=== PATIENT | female | born 1955 | race Caucasian/White ===

== ENCOUNTER 2016-10-12 19:47 | Emergency (ER) | payer OTHER ==
[~2016-10-12 19:47] MED LIST: ALBUTEROL HFA6.7 GM IH; ALBUTEROL HFA6.7 GM INH; ALPRAZOLAM1 MG PO; AMITRIPTYLINE H25 MG PO; AMLACTIN1 EACH TOP; AMMONIUM LACTA225 GM TOP; AMMONIUM LACTATE1 ML TOP; ASPIR 8181 MG PO; ASPIRIN EC81 MG PO; AUGMENTIN 875-1 EACH PO; BACTROBAN15 GM TOP; CARDIZEM LA420 MG PO; DALIRESP500 MCG PO; DIGOXIN125 MCG PO; DILTIAZEM 24HR120 M1 PO; DILTIAZEM ER420 MG PO; FEOSOL325 MG PO; FERROUS SULFAT325 MG PO; FIORICET 50-301 EACH PO; FIORICET/BUTALBI1 EA PO; FLONASE ALLER15.8 ML; FLUTICASONE PRO16 GM NS; FUROSEMIDE40 MG PO; GABAPENTIN300 MG PO; GLUCOTROL10 MG PO; HUMALOG100 UNIT/1 SQ; IPRAT-ALBUT 0.5-3 ML NEB; K-DUR20 MEQ PO; KLOR-CON M2020 MEQ PO; LACTINEX CHEWA1 EACH PO; LANOXIN125 MCG PO; LANOXIN250 MCG PO; LANTUS100 UNIT/1 SQ; LASIX40 MG PO; LEVALBUTEROL NEB; LEVAQUIN750 MG PO; LEVOFLOXACIN750 MG PO; LEVOTHYROXINE150 MCG PO; LEXAPRO20 MG PO; LISINOPRIL5 MG PO; METOPROLOL TART25 MG PO; MONTELUKAST SOD10 MG PO; MULTAQ400 MG PO; MYSOLINE50 MG PO; NEURONTIN300 MG PO; NEURONTIN600 MG PO; NITROGLYCERIN0.4 MG SL; NITROQUICK0.4 MG SL; NITROSTAT0.4 MG SL; OMEPRAZOLE20 MG PO; OMEPRAZOLE40 MG PO; ONDANSETRON HCL4 MG PO; PERCOCET 10-321 EACH PO; PERCOCET 10/3251 TAB PO; PHENERGAN25 M1 PO; POLYETHYLENE GL17 GM PO; POTASSIUM CHLO20 ME1 PO; PREDNISONE10 MG PO; PREDNISONE20 MG PO; PRILOSEC20 M1 PO; PRILOSEC40 MG PO; PRIMIDONE50 MG PO; PRINIVIL10 MG PO; PRINIVIL5 MG PO; PROAIR HFA8.5 GM IH; REGLAN10 MG PO; REQUIP1 MG PO; REQUIP2 MG PO; ROPINIROLE HCL2 MG PO; SALINE NASAL M126 ML NS; SALINE NOSE SPR45 ML NS; SERTRALINE HCL50 MG PO; SINGULAIR10 MG PO; SMOOTHLAX17 GM PO; SPIRIVA18 MCG IH; SYMBICORT 16010.2 GM IH; SYNTHROID150 MCG PO; TESSALON PERLE100 MG PO; THEOPHYLLINE A300 MG PO; THEOPHYLLINE600 MG PO; TUDORZA PRESS400 MCG IH; TUSSIONEX PENN115 ML PO; TYLENOL325 MG PO; XANAX1 MG PO; XARELTO15 MG PO; ZESTRIL10 MG PO; ZOFRAN4 MG PO; ZOLOFT100 MG PO; ZOLOFT50 MG PO; [UNRECOGNIZED DRUG - OTHER] NEB
== END 2016-10-12 23:10 | disposition home or self-care (01) ==
LOC: ER 19:47
DX: R10.32 Left lower quadrant pain (principal); J44.1 Chronic obstructive pulmonary disease with (acute) exacerbation; R11.0 Nausea; E10.9 Type 1 diabetes mellitus without complications; F32.9 Major depressive disorder, single episode, unspecified; F41.9 Anxiety disorder, unspecified; I48.91 Unspecified atrial fibrillation; K21.9 Gastro-esophageal reflux disease without esophagitis; I25.2 Old myocardial infarction; I50.9 Heart failure, unspecified; E66.01 Morbid (severe) obesity due to excess calories; E78.5 Hyperlipidemia, unspecified; E03.9 Hypothyroidism, unspecified; I25.10 Atherosclerotic heart disease of native coronary artery without angina pectoris; Z98.51 Tubal ligation status; Z87.891 Personal history of nicotine dependence; Z79.899 Other long term (current) drug therapy; Z88.1 Allergy status to other antibiotic agents; Z88.6 Allergy status to analgesic agent; Z88.8 Allergy status to other drugs, medicaments and biological substances
CPT/HCPCS: 36415; 96374; 96375; 96376

== ENCOUNTER 2016-11-05 22:12 | Inpatient (IN) | payer OTHER ==
[~2016-11-05] VITALS: Ht 160 cm; Wt 80.4 kg
[2016-11-09] MEDS ORDERED: XANAX1 MG PO (13:15)
[2016-11-09] MEDS ORDERED: TESSALON PERLE100 MG PO (13:16)
[2016-11-09] MEDS ORDERED: DALIRESP500 MCG PO (13:16)
[2016-11-09] MEDS ORDERED: LEXAPRO20 MG PO (13:17)
[2016-11-09] MEDS ORDERED: FERROUS SULFAT325 MG PO (13:19)
[2016-11-09] MEDS ORDERED: LASIX40 MG PO (13:21)
[2016-11-09] MEDS ORDERED: NEURONTIN300 MG PO (13:23)
[2016-11-09] MEDS ORDERED: POLYETHYLENE GL17 GM PO (13:23)
[2016-11-09] MEDS ORDERED: HUMALOG100 UNIT/1 SQ (13:28)
[2016-11-09] MEDS ORDERED: LANTUS100 UNIT/1 SQ (13:28)
[2016-11-09] MEDS ORDERED: SYNTHROID150 MCG PO (13:29)
[2016-11-09] MEDS ORDERED: ZESTRIL10 MG PO (13:36)
[2016-11-09] MEDS ORDERED: METOCLOPRAMIDE10 MG PO (13:36)
[2016-11-09] MEDS ORDERED: SINGULAIR10 MG PO (13:37)
[2016-11-09] MEDS ORDERED: BACTROBAN NASAL1 GM TOP (13:38)
[2016-11-09] MEDS ORDERED: NITROSTAT0.4 MG SL (13:40)
[2016-11-09] MEDS ORDERED: SALINE NOSE SPR45 ML NS (13:41)
[2016-11-09] MEDS ORDERED: OMEPRAZOLE40 MG PO (13:42)
[2016-11-09] MEDS ORDERED: ZOFRAN4 MG PO (13:43)
[2016-11-09] MEDS ORDERED: PERCOCET 10-321 EACH PO (13:44)
[2016-11-09] MEDS ORDERED: K-DUR20 MEQ PO (13:46)
[2016-11-09] MEDS ORDERED: REQUIP2 MG PO (13:47)
[2016-11-09] MEDS ORDERED: PHENERGAN25 M1 PO (13:47)
[2016-11-09] MEDS ORDERED: TUDORZA PRESS400 MCG IH (13:48)
[2016-11-09] MEDS ORDERED: THEOCHRON300 MG PO (13:48)
[2016-11-09] MEDS ORDERED: XARELTO15 MG PO (13:49)
[2016-11-09] MEDS ORDERED: CARDIZEM LA420 MG PO (13:50)
[2016-11-09] MEDS ORDERED: SPIRIVA18 MCG IH (13:51)
[2016-11-09] MEDS ORDERED: LANOXIN250 MCG PO (13:51)
[2016-11-09] MEDS ORDERED: PRIMIDONE50 MG PO (13:52)
[2016-11-09] MEDS ORDERED: XOPENEX1.25 MG/3 NEB (13:53)
[2016-11-09] MEDS ORDERED: PREDNISONE10 MG PO (13:54)
[2016-11-09] MEDS ORDERED: LEVAQUIN500 MG PO (13:55)
== END 2016-11-09 18:37 | disposition home or self-care (01) | DRG 189 ==
LOC: ER 22:12 → MED 11-06 01:56
PROVIDERS: ADMIT Internal Medicine
DX: J96.22 Acute and chronic respiratory failure with hypercapnia (principal); J44.0 Chronic obstructive pulmonary disease with (acute) lower respiratory infection; J44.1 Chronic obstructive pulmonary disease with (acute) exacerbation; K94.09 Other complications of colostomy; J96.21 Acute and chronic respiratory failure with hypoxia; Z99.81 Dependence on supplemental oxygen; J20.9 Acute bronchitis, unspecified; E11.43 Type 2 diabetes mellitus with diabetic autonomic (poly)neuropathy; E11.65 Type 2 diabetes mellitus with hyperglycemia; K31.84 Gastroparesis; T38.0X5A Adverse effect of glucocorticoids and synthetic analogues, initial encounter; G47.33 Obstructive sleep apnea (adult) (pediatric); I48.0 Paroxysmal atrial fibrillation; G25.0 Essential tremor; K46.9 Unspecified abdominal hernia without obstruction or gangrene; I10 Essential (primary) hypertension; E03.9 Hypothyroidism, unspecified; D63.8 Anemia in other chronic diseases classified elsewhere; K21.9 Gastro-esophageal reflux disease without esophagitis; F41.9 Anxiety disorder, unspecified; F32.9 Major depressive disorder, single episode, unspecified; G89.29 Other chronic pain; M54.5 Low back pain; M81.0 Age-related osteoporosis without current pathological fracture; G25.81 Restless legs syndrome; I25.10 Atherosclerotic heart disease of native coronary artery without angina pectoris; Z79.01 Long term (current) use of anticoagulants; Z79.4 Long term (current) use of insulin; Z79.899 Other long term (current) drug therapy; Z88.6 Allergy status to analgesic agent; Z88.1 Allergy status to other antibiotic agents; Z88.2 Allergy status to sulfonamides; Z88.8 Allergy status to other drugs, medicaments and biological substances; Z98.51 Tubal ligation status; Z87.891 Personal history of nicotine dependence; Z83.3 Family history of diabetes mellitus; Z82.49 Family history of ischemic heart disease and other diseases of the circulatory system; R10.9 Unspecified abdominal pain
CPT/HCPCS: 36415; 74020; 94664; 96374; 96375; J1940; J2920

== ENCOUNTER 2016-12-28 00:58 | Emergency (ER) | payer OTHER ==
[~2016-12-28 00:58] MED LIST changes: +BACTROBAN NASAL1 GM TOP; +LEVAQUIN500 MG PO; +METOCLOPRAMIDE10 MG PO; +THEOCHRON300 MG PO; +XOPENEX1.25 MG/3 NEB
== END 2016-12-28 02:14 | disposition home or self-care (01) ==
LOC: ER 00:58
DX: N39.0 Urinary tract infection, site not specified (principal); F32.9 Major depressive disorder, single episode, unspecified; F41.9 Anxiety disorder, unspecified; I48.91 Unspecified atrial fibrillation; K21.9 Gastro-esophageal reflux disease without esophagitis; I25.10 Atherosclerotic heart disease of native coronary artery without angina pectoris; I25.2 Old myocardial infarction; E66.01 Morbid (severe) obesity due to excess calories; E11.9 Type 2 diabetes mellitus without complications; Z98.51 Tubal ligation status; Z68.29 Body mass index [BMI] 29.0-29.9, adult; Z79.4 Long term (current) use of insulin; Z79.899 Other long term (current) drug therapy

== ENCOUNTER 2016-12-29 22:34 | Emergency (ER) | payer OTHER | END 2016-12-30 02:45 | disposition home or self-care (01) | LOC: ER 22:34 | DX: N39.0 Urinary tract infection, site not specified (principal); K21.9 Gastro-esophageal reflux disease without esophagitis; E11.9 Type 2 diabetes mellitus without complications; E78.5 Hyperlipidemia, unspecified; J44.9 Chronic obstructive pulmonary disease, unspecified; F32.9 Major depressive disorder, single episode, unspecified; F41.9 Anxiety disorder, unspecified; I25.2 Old myocardial infarction; I48.91 Unspecified atrial fibrillation; E66.01 Morbid (severe) obesity due to excess calories; Z98.51 Tubal ligation status; Z87.891 Personal history of nicotine dependence; Z99.81 Dependence on supplemental oxygen; Z79.4 Long term (current) use of insulin; Z79.899 Other long term (current) drug therapy; Z88.1 Allergy status to other antibiotic agents; Z88.6 Allergy status to analgesic agent; Z88.8 Allergy status to other drugs, medicaments and biological substances | CPT/HCPCS: 36415; 96361; 96365; 96375; 96376; J0696 ==

== ENCOUNTER 2017-01-13 11:05 | Emergency (ER) | payer OTHER | END 2017-01-13 14:07 | disposition home or self-care (01) | LOC: ER 11:05 | DX: N30.90 Cystitis, unspecified without hematuria (principal); E78.5 Hyperlipidemia, unspecified; J44.9 Chronic obstructive pulmonary disease, unspecified; K21.9 Gastro-esophageal reflux disease without esophagitis; I48.91 Unspecified atrial fibrillation; I25.2 Old myocardial infarction; E11.9 Type 2 diabetes mellitus without complications; F32.9 Major depressive disorder, single episode, unspecified; F41.9 Anxiety disorder, unspecified; E03.9 Hypothyroidism, unspecified; Z98.51 Tubal ligation status; Z87.891 Personal history of nicotine dependence; Z79.4 Long term (current) use of insulin; Z79.899 Other long term (current) drug therapy; Z88.1 Allergy status to other antibiotic agents; Z88.6 Allergy status to analgesic agent; Z88.8 Allergy status to other drugs, medicaments and biological substances | CPT/HCPCS: 36415; 96361; 96365; 96375; J1335 ==

== ENCOUNTER 2017-03-29 14:01 | Inpatient (IN) | payer OTHER ==
[~2017-03-29] VITALS: Ht 160 cm; Wt 79.0 kg
--- NOTE | 2017-03-30 18:50 | NUR ---
1415: NOTIFED OF PATIENT'S BP BEING 80/40, PAC NOTIFED, 250 ML NS BOLUS ORDERED, BP RECHECK POST BOLUS, 82/46 MANUAL BP. NEW ORDER RECIEVED TO REPEAT BOLUS. NEW ORDERS RECIEVED SEE CHART 1615: [facility]-P[facility] NOTIFED OF STAT LAB RESULT OF POTASSIUM OF 2.8, NEW ORDERS RECIEVED;SEE CHART 1700: PT'S BP AT 92/56, PT TAKEN TO MRI. PT STABLE AT TIME OF TRANSPORT. 1825: PT'S BP 110/61, PT STABLE AT THIS TIME, RESTING IN BED WITH EYES CLOSED, FAMILY AT BEDTIME, WILL CONTINUE TO MONITOR.
--- NOTE | 2017-03-30 23:01 | NUR ---
patient transfered to ICU at 2200/report given to Yahaira RN/pt was lethargic, hypotensive/dr barber was called at 2019 - report given on low BP and patient lethargic status/orders were given and placed in chart
--- NOTE | 2017-03-31 13:15 | NUR ---
1005: PT TAKEN BY BED TO CT SCAN WITH RN/RAD STAFF ON TELE AND O2; PT DROWSY BUT ANSWERS QUESTIONS. PT KIM. SCAN WELL; PT RETURNED TO ICU APROX 1030 BY BED; VSS; NSR ON MONITOR, BP 105/43; O2 SAT 93% ON 3L NC. PT WITH NO COMPLAINTS.
--- NOTE | 2017-04-01 16:56 | NUR ---
REPORT GIVEN TO JONEL GARCIA RN.
== END 2017-04-06 17:05 | disposition home health service (06) | DRG 291 ==
LOC: ER 14:01 → MED 17:17 → ICU 17:17 → MED 04-02 16:55
PROVIDERS: ADMIT Internal Medicine
DX: I11.0 Hypertensive heart disease with heart failure (principal); J18.9 Pneumonia, unspecified organism; A41.9 Sepsis, unspecified organism; J96.22 Acute and chronic respiratory failure with hypercapnia; R65.21 Severe sepsis with septic shock; G93.40 Encephalopathy, unspecified; J44.0 Chronic obstructive pulmonary disease with (acute) lower respiratory infection; N17.9 Acute kidney failure, unspecified; I50.31 Acute diastolic (congestive) heart failure; I48.0 Paroxysmal atrial fibrillation; Z79.01 Long term (current) use of anticoagulants; G47.33 Obstructive sleep apnea (adult) (pediatric); Y95 Nosocomial condition; E03.9 Hypothyroidism, unspecified; D63.8 Anemia in other chronic diseases classified elsewhere; K21.9 Gastro-esophageal reflux disease without esophagitis; F41.9 Anxiety disorder, unspecified; F32.9 Major depressive disorder, single episode, unspecified; M54.5 Low back pain; M81.0 Age-related osteoporosis without current pathological fracture; G25.81 Restless legs syndrome; I25.10 Atherosclerotic heart disease of native coronary artery without angina pectoris; Z98.51 Tubal ligation status; Z87.891 Personal history of nicotine dependence; Z83.3 Family history of diabetes mellitus; Z82.49 Family history of ischemic heart disease and other diseases of the circulatory system; Z88.1 Allergy status to other antibiotic agents; Z88.2 Allergy status to sulfonamides; Z88.8 Allergy status to other drugs, medicaments and biological substances; Z79.82 Long term (current) use of aspirin; Z79.4 Long term (current) use of insulin; Z79.899 Other long term (current) drug therapy; G89.4 Chronic pain syndrome; Z66 Do not resuscitate; R20.0 Anesthesia of skin; E11.40 Type 2 diabetes mellitus with diabetic neuropathy, unspecified
CPT/HCPCS: 36415; 70551; 80307; 90686; 93306; 94664; 96374; 96375; 97161-GP; 97162-GP; 97166; J0384; J1940; J3370; J7050